=== PATIENT | female | born 1980 | race Caucasian/White ===

== ENCOUNTER 2016-09-02 09:10 | Outpatient (CLI) | payer OTHER | END 2016-09-02 23:00 | LOC: LAB SRH 09:10 | DX: E03.9 Hypothyroidism, unspecified (principal); R14.0 Abdominal distension (gaseous); K59.00 Constipation, unspecified; E27.9 Disorder of adrenal gland, unspecified | CPT/HCPCS: 90074; 90193; 90648; 91023; 91282; 92032; 93010; 93140; 97280; 98035 ==

== ENCOUNTER 2016-11-10 09:08 | Outpatient (CLI) | payer OTHER | END 2016-11-10 23:00 | disposition home or self-care (01) | LOC: LAB SRH 09:08 | DX: E03.9 Hypothyroidism, unspecified (principal); E27.9 Disorder of adrenal gland, unspecified; R53.83 Other fatigue | CPT/HCPCS: 90074; 90648; 91023; 92668; 92670 ==